=== PATIENT | female | born 1995 | race Caucasian/White ===

== ENCOUNTER 2020-01-28 16:43 | Emergency (ER) | payer BC ==
[2020-01-28] MEDS ORDERED: Sodium Chloride 0.9% 1,000 ML IV ONE (17:06)
[2020-01-28] MEDS ORDERED: Sodium Chloride 0.9% 10 ML Syringe FLUSH PRN (17:06)
--- NOTE | 2020-01-28 17:06 | EDM.PDOC ---
ED HPI GENERAL MEDICAL PROBLEM - General Chief Complaint: Flank Pain Stated Complaint: KIDNEY STONE Time Seen by Provider: 01/28/20 17:05 Source of Information: Reports: Patient - History of Present Illness INITIAL COMMENTS - FREE TEXT/NARRATIVE: [place], 24-year-old female presents to the emergency department with right flank pain that came on suddenly this afternoon. This radiates to the groin area and is consistent with previous renal lithiasis that she experienced 2 years ago. She has noted urine frequency since last Thursday, later afternoon, after she had returned home from an OB appointment with her provider in [place]. She is Rh positive, currently 16 weeks 5 days gestation, gravid 1 para 0. She denies any fever chills or other factors contributing to this other than some intermittent constipation over the past week. Discomfort predominantly to the flank and radiating anteriorly as typical renal lithiasis presentation. No vaginal discharge, cramping nor bleeding. Onset: Today, Sudden Treatments SAWDUST DRIER: Reports: Acetaminophen Right Flank Pain Score (Numeric/FACES): 8 - Related Data Allergies Allergy/AdvReac Type Severity Reaction Status Date / Time No Known Drug Allergies Allergy Cannot Verified 01/28/20 16:54 Remember Home Meds: Home Meds No122/Iron/Folic Acid [ Multi Tablet] 1 tab PO DAILY 01/28/20 [History] Past Medical History HEENT History: Reports: Impaired Vision Cardiovascular History: Reports: None Gastrointestinal History: Reports: None Genitourinary History: Reports: Renal Calculus DETACHER History: Reports: : 1 Para: 0 LMP (Approximate): Other DETACHER History: currently 16 weeks - Infectious Disease History Infectious Disease History: Reports: Chicken Pox - Past Surgical History HEENT Surgical History: Reports: Oral Surgery GI Surgical History: Reports: Cholecystectomy Social & Family History - Family History Family Medical History: No Pertinent Family History - Tobacco Use Tobacco Use Status *Q: Never Tobacco User - Caffeine Use Caffeine Use: Reports: Soda, Tea Other Caffeine Use: regular pop - Recreational Drug Use Recreational Drug Use: No ED ROS GENERAL - Review of Systems Review Of Systems: Comprehensive ROS is negative, except as noted in HPI. ED EXAM, GENERAL - Physical Exam Exam: See Below Free Text/Narrative:: Alert, oriented, mild painful distress. HEENT is negative to discharge or deformity. She has pink moist mucous membranes with no erythema. Neck is soft supple with no lymphadenopathy, no JVD is appreciated. Thorax is clear throughout no wheezes, no crackles are noted. Cardiac is S1-S2 I do not appreciate murmur. Radial pulses correlate with apical heart rate. Gravid abdomen nontender. There is tenderness in the right flank that radiates around towards the front downward to the groin. rectal is deferred. There is trace edema to the lower extremities. She is restless as with typical renal lithiasis. heart tones at a rate of 142. This is found by Doppler 4 cm from the umbilicus at the 7-8 o'clock position, at a caudal angle. Course - Vital Signs Last Recorded V/S: Last Vital Signs Temp 36.3 C 01/28/20 18:43 Pulse 75 01/28/20 18:43 Resp 18 01/28/20 18:43 BP 138/76 01/28/20 18:43 Pulse Ox 100 01/28/20 18:43 - Orders/Labs/Meds Orders: Active Orders 24 hr Category Date Time Status Peripheral IV Care [RC] . DIRECTED Care 01/28/20 17:06 Active CULTURE URINE [RM] Stat Lab 01/28/20 16:46 Received Sodium Chloride 0.9% [Saline Flush] Med 01/28/20 17:06 Active 10 ml FLUSH Q8HR PRN Peripheral IV Insertion Adult [OM.PC] Routine Oth 01/28/20 17:06 Ordered Medication Orders Sodium Chloride (Saline Flush) 10 ml FLUSH Q8HR PRN PRN Reason: keep vein open Last Admin: 01/28/20 17:25 Dose: 10 ml Documented by: JAVIER Labs: Laboratory Tests 01/28/20 01/28/20 01/28/20 Range/Units 16:46 17:25 17:25 WBC 12.78 H (5.00-10.00) 10^3/uL RBC 4.16 (3.80-5.50) 10^6/uL Hgb 12.3 (12.0-16.0) g/dL Hct 35.2 L (37.0-47.0) % MCV 84.6 (82.0-92.0) fL MCH 29.6 (27.0-31.0) pg MCHC 34.9 (32.0-36.0) g/dL RDW 13.0 (11.5-14.5) % Plt Count 321 (150-400) 10^3/uL MPV 9.3 (7.4-10.4) fL Immature Gran % (Auto) 0.3 (0.0-5.0) % Neut % (Auto) 73.2 H (50.0-70.0) % Lymph % (Auto) 20.8 (20.0-40.0) % [place] % (Auto) 5.2 (2.0-8.0) % Eos % (Auto) 0.3 L (1.0-3.0) % Baso % (Auto) 0.2 (0.0-1.0) % Neut # (Auto) 9.35 H (2.50-7.00) 10^3/uL Lymph # (Auto) 2.66 (1.00-4.00) 10^3/uL [place] # (Auto) 0.67 (0.10-0.80) 10^3/uL Eos # (Auto) 0.04 L (0.10-0.30) 10^3/uL Baso # (Auto) 0.02 (0.00-0.10) 10^3/uL Immature Gran # (Auto) 0.04 (0.00-0.50) 10^3/uL Sodium 137 (136-145) mmol/L Potassium 3.2 L (3.3-5.3) mmol/L Chloride 101 (98-115) mmol/L Carbon Dioxide 21.4 (21.0-32.0) mmol/L Anion Gap 17.8 H (5-15) mmol/L BUN 11 (6-25) mg/dL Creatinine 0.63 (0.51-1.17) mg/dL Est Cr Clr Drug Dosing 118.90 mL/min Estimated GFR (MDRD) > 60 mL/min Glucose 93 (75 - 99) mg/dL Calcium 9.2 (8.7-10.3) mg/dL Total Bilirubin 0.2 (0.2-1.0) mg/dL AST 17 (15-37) U/L ALT 27 (12-78) U/L Alkaline Phosphatase 43 L (46-116) IU/L Total Protein 7.0 (6.4-8.2) g/dL Albumin 3.23 (3.00-4.80) g/dL Specimen Type Urincc Urine Color Yellow (YELLOW) Urine Appearance Slightly cloudy H (CLEAR) Urine pH 5.5 (5.0-9.0) Ur Specific [place] >= 1.030 (1.005-1.030) Urine Protein 30 H (NEGATIVE) mg/dL Urine Glucose (UA) Negative (NEGATIVE) mg/dL Urine Ketones Trace H (NEGATIVE) mg/dL Urine Occult Blood Small H (NEGATIVE) Urine Nitrite Negative (NEGATIVE) Urine Bilirubin Negative (NEGATIVE) Urine Urobilinogen 0.2 (0.2-1.0) E.U./dL Ur Leukocyte Esterase Negative (NEGATIVE) Urine RBC 5-10 H (0-5) /HPF Urine WBC 5-10 H (0-5) /HPF Ur Epithelial Cells Moderate H /LPF Urine Bacteria Moderate H (NONE TO FEW) /HPF Meds: Medications Generic Name Dose Route Start Last Admin Trade Name Freq PRN Reason Stop Dose Admin Sodium Chloride 10 ml 01/28/20 17:06 01/28/20 17:25 Saline Flush FLUSH 10 ml Q8HR PRN Administration keep vein open Discontinued Medications Generic Name Dose Route Start Last Admin Trade Name Freq PRN Reason Stop Dose Admin Sodium Chloride 1,000 mls @ 999 mls/hr 01/28/20 17:06 01/28/20 17:36 Normal Saline IV 01/28/20 18:06 999 mls/hr .BOLUS ONE Administration Morphine Sulfate 1 mg 01/28/20 18:02 01/28/20 18:10 Morphine IVPUSH 01/28/20 18:03 1 mg ONETIME ONE Administration Morphine Sulfate 1 mg 01/28/20 18:33 01/28/20 18:42 Morphine IVPUSH 01/28/20 18:34 Not Given ONETIME ONE Ondansetron HCl 4 mg 01/28/20 17:38 01/28/20 17:45 Zofran IVPUSH 01/28/20 17:39 4 mg ONETIME ONE Administration - Re-Assessments/Exams Free Text/Narrative Re-Assessment/Exam: 01/28/20 17:25 Detailed discussion regarding limiting our ability for testing. We will run laboratory analysis and attempt to provide comfort as well as IV hydration secondary of her urine presentation. Did seriously discuss the aspect that she would need a higher level of care where ultrasound is available to determine the nature of the stone, and or other renal related factors not available to us here at the [facility]. She does understand this aspect of her care. Free Text/Narrative Re-Assessment/Exam: 01/28/20 19:15 Pain improved from 8 down to 5 or 6 with the implementation of morphine sulfate 1 mg repeated by 1 mg. Nausea resolved with 4 mg of Zofran IV. Departure - Departure Time of Disposition: 19:12 Disposition: DC/Tfer to [facility] 02 Condition: Good Clinical Impression: Renal colic on right side, , Cystitis, Hypokalemia, Urine frequency - Discharge Information *PRESCRIPTION DRUG MONITORING PROGRAM REVIEWED*: Not Applicable *COPY OF PRESCRIPTION DRUG MONITORING REPORT IN PATIENT DAFNE: Not Applicable Referrals: PCP,Not In Area [Primary Care Provider] - Forms: ED Department Discharge, Interfacility Transfer EMTALA Additional Instructions: Nothing to eat or drink until after you have been evaluated at [facility], off on [facility] [place] [address]. Sepsis Event Note (ED) - Evaluation Sepsis Screening Result: No Definite Risk - Focused Exam Vital Signs: Vital Signs Temp Pulse Resp BP Pulse Ox 01/28/20 18:43 36.3 C 75 18 138/76 100 01/28/20 16:48 35.6 C L 70 16 131/75 97 ED Communication - ED Communication Date/Time Date: 01/28/20 Time Called: 19:00 - Discussed Case With (1) Discussed Case With (1): Other (Dr Ramos [facility]) - Conversation Summary Admitting Provider Agreed to Patient's Admission: Yes Summary Comment: accepted to ED for further evaluation - Problem List & Annotations (1) SNOMED Code(s): 36045814 Code(s): Z34.90 - ENCNTR FOR SUPRVSN OF NORMAL , UNSP, UNSP TRIMESTER Status: Chronic Priority: High Current Visit: Yes Qualifiers: Weeks of gestation: 16 weeks Qualified Code(s): Z3A.16 - 16 weeks gestation of (2) Renal colic on right side SNOMED Code(s): 2127249 Code(s): N23 - UNSPECIFIED RENAL COLIC Status: Acute Priority: High Current Visit: Yes (3) Urine frequency SNOMED Code(s): 726533525 Code(s): R35.0 - FREQUENCY OF MICTURITION Status: Acute Current Visit: Yes (4) Hypokalemia SNOMED Code(s): 22421431 Code(s): E87.6 - HYPOKALEMIA Status: Acute Priority: Medium Current Visit: Yes (5) Cystitis SNOMED Code(s): 75957971 Code(s): N30.90 - CYSTITIS, UNSPECIFIED WITHOUT HEMATURIA Status: Acute Current Visit: Yes - Problem List Review Problem List Initiated/Reviewed/Updated: Yes - My Orders Last 24 Hours: My Active Orders 01/28/20 16:46 CULTURE URINE [RM] Stat 01/28/20 17:06 Peripheral IV Care [RC] . DIRECTED Sodium Chloride 0.9% [Saline Flush] 10 ml FLUSH Q8HR PRN Peripheral IV Insertion Adult [OM.PC] Routine - Assessment/Plan Last 24 Hours: My Active Orders 01/28/20 16:46 CULTURE URINE [RM] Stat 01/28/20 17:06 Peripheral IV Care [RC] . DIRECTED Sodium Chloride 0.9% [Saline Flush] 10 ml FLUSH Q8HR PRN Peripheral IV Insertion Adult [OM.PC] Routine Plan: Nothing to eat or drink until after you have been evaluated at [facility], [facility] [place] [address].
[2020-01-28] MEDS ORDERED: Ondansetron 4 MG/2 ML SDV IVPUSH ONE (17:38)
[2020-01-28] MEDS ORDERED: Morphine 2 MG/ML SYRINGE IVPUSH ONE ×2 (18:02→18:33)
[2020-01-28 18:05] LABS: ANION GAP 17.8 mmol/L (5-15); CHLORIDE,CL 101 mmol/L (98-115); SODIUM,NA 137 mmol/L (136-145)
== END 2020-01-28 19:20 ==
LOC: KA.ED 16:43
DX: O23.12 Infections of bladder in pregnancy, second trimester (principal); O99.282 Endocrine, nutritional and metabolic diseases complicating pregnancy, second trimester; E87.6 Hypokalemia; O99.891 Other specified diseases and conditions complicating pregnancy; N23 Unspecified renal colic; Z3A.16 16 weeks gestation of pregnancy
CPT/HCPCS: 80053; 81001; 85025; 87086; 96374; 96375; 99284; 99284-25; J2270; J2405; J7030